=== PATIENT | female | born 1995 | race African-American/Black ===

== ENCOUNTER 2019-02-16 09:41 | Emergency (ER) | payer OTHER ==
[~2019-02-16] VITALS: Ht 162.6 cm; Wt 73.0 kg
[2019-02-16 09:47] VITALS: BP 144/84
== END 2019-02-16 18:57 | disposition left against medical advice (07) ==
LOC: ER 10:14
DX: F41.0 Panic disorder [episodic paroxysmal anxiety] (principal); Z53.21 Procedure and treatment not carried out due to patient leaving prior to being seen by health care provider